=== PATIENT | male | born 1985 | race Caucasian/White ===

== ENCOUNTER 2016-08-11 23:57 | Emergency (ER) | payer OTHER ==
[2016-08-12] MEDS ORDERED: CLARITIN-D 10 M1 T24 PO (00:04)
[2016-08-12 00:48] VITALS: BP 117/85
== END 2016-08-12 00:48 | disposition home or self-care (01) ==
LOC: ED 23:57
DX: S81.811A Laceration without foreign body, right lower leg, initial encounter (principal); W26.0XXA Contact with knife, initial encounter; Y92.018 Other place in single-family (private) house as the place of occurrence of the external cause
CPT/HCPCS: 15840; 5930; A4550; A4649

== ENCOUNTER → 2016-08-19 | Emergency (ER) | payer OTHER ==
[~2016-08-19] MED LIST: CLARITIN-D 10 M1 T24 PO
[2016-08-19 13:49] VITALS: BP 122/90
== END ==
LOC: ED 13:42

== ENCOUNTER 2018-12-10 15:05 | Emergency (ER) | payer OTHER ==
[~2018-12-10 15:05] MED LIST changes: +DAILY VITE1 TA1 PO; +FLONASE ALLERG9.9 ML NS; +PROBIOTIC1 EAC1 PO
[2018-12-10 15:26] VITALS: BP 101/68
== END 2018-12-10 15:25 ==
LOC: ED 15:05
DX: S61.211D Laceration without foreign body of left index finger without damage to nail, subsequent encounter (principal)

== ENCOUNTER → 2023-08-10 | Day surgery (SDC) | payer BC | END | disposition home or self-care (01) | LOC: MSO 09:22 | DX: Z12.11 Encounter for screening for malignant neoplasm of colon (principal); Z80.0 Family history of malignant neoplasm of digestive organs; Z15.09 Genetic susceptibility to other malignant neoplasm | CPT/HCPCS: 00812; J2704; J7120 ==